=== PATIENT | female | born 1990 | race Caucasian/White ===

== ENCOUNTER 2025-07-03 11:31 | Emergency (ER) | payer OTHER ==
[~2025-07-03] VITALS: Ht 175.3 cm; Wt 82.0 kg
[2025-07-03 11:36] VITALS: O2SAT 99
[2025-07-03] MEDS ORDERED: DEXAMETHASONE 1 MG/ML ORAL SYR PO ONE (14:45)
[2025-07-03] MEDS: DIPHENHYDRAMINE 12.5MG/5ML UDC PO ONE (16:02)
[2025-07-03] MEDS: SUMATRIPTAN SUCCINATE 6MG/0.5ML VIAL SUBCUT ONE (16:02)
[2025-07-03] MEDS: PROCHLORPERAZINE MALEATE 10MG TABLET PO ONE (16:02)
[2025-07-03] MEDS: KETOROLAC 30MG/ML VIAL IM ONE (16:03)
[2025-07-03] MEDS: DEXAMETHASONE 4MG TABLET PO SCH (16:33)
[2025-07-03] MEDS ORDERED: IBUP-1455 MT (18:54)
[2025-07-03] MEDS ORDERED: SUMA100T16 MT (18:54)
[2025-07-03] MEDS ORDERED: AMOX1TAB16 MT (18:54)
[2025-07-03] MEDS ORDERED: SUMA11AE2 BOTHNSTRLS (18:54)
[2025-07-03 19:16] VITALS: BP 123/67; PULSE 67; RESP 16; TEMP 36.9; O2SAT 100
== END 2025-07-03 19:17 | disposition home or self-care (01) ==
LOC: ER 11:31
DX: N93.0 Postcoital and contact bleeding (principal); R51.9 Headache, unspecified; K04.7 Periapical abscess without sinus
CPT/HCPCS: 99284; 71045; 96372; J1885; J8540; Q0164; Q0163; J3030